=== PATIENT | female | born 1955 | race Native Hawaiian/Other Pacific Islander ===

== ENCOUNTER → 2016-10-16 | Outpatient (CLI) | payer OTHER ==
[2016-10-16 11:22] LABS: FREE T4 1.06 ng/dL (0.76-1.46); FREE THYROXINE INDEX 2.7 ug/dL (1.4-4.5)
[2016-10-16 12:16] LABS: T3 TOTAL 1.1 ng/mL
[2016-10-16 13:00] LABS: CHOLESTEROL/HDL RATIO 4.8
== END | disposition home or self-care (01) ==
LOC: LB 10:34
PROVIDERS: Family Medicine
DX: E78.5 Hyperlipidemia, unspecified (principal)
CPT/HCPCS: 84439

== ENCOUNTER 2017-01-07 07:15 | Emergency (ER) | payer OTHER ==
[~2017-01-07] VITALS: Ht 154.9 cm; Wt 63.7 kg
[2017-01-07 07:24] VITALS: BP 129/61
== END 2017-01-07 08:04 | disposition home or self-care (01) ==
LOC: ED 07:15
DX: J01.00 Acute maxillary sinusitis, unspecified (principal)

== ENCOUNTER → 2017-07-20 | Outpatient (CLI) | payer OTHER | END | disposition home or self-care (01) | LOC: MI 08:36 | PROC: BR30ZZZ Magnetic Resonance Imaging (MRI) of Cervical Spine (ICD-10-PCS; principal; 2017-07-20) | DX: M54.2 Cervicalgia (principal) | CPT/HCPCS: Q0092 ==

== ENCOUNTER → 2017-09-09 | Outpatient (CLI) | payer OTHER ==
[2017-09-09 09:03] LABS: ALBUMIN 3.9 g/dL (3.4-5.0); ALKALINE PHOSPHATASE 85 U/L (46-116); ALT/SGPT 43 U/L (14-59); AST/SGOT 19 U/L (15-37); BILIRUBIN TOTAL 0.41 mg/dL (0.20-1.00); CALCIUM 8.8 mg/dL (8.5-10.1); CARBON DIOXIDE 28.3 mmol/L (21-32); CHLORIDE SERUM 107 mmol/L (98-107); CREATININE SERUM 0.8 mg/dL (0.6-1.0); GFR1 > 60 mL/min; GLUCOSE SERUM 102 mg/dL (74-106); HDL CHOLESTEROL 48 mg/dL (40-60); POTASSIUM SERUM 4.3 mmol/L (3.5-5.1); SODIUM SERUM 143 mmol/L (136-145); TOTAL PROTEIN, SERUM 7.2 g/dL (6.4-8.2); TRIGLYCERIDES 140 mg/dL (<150)
[2017-09-09 09:04] LABS: CHOLESTEROL 218 mg/dL (<200); CHOLESTEROL/HDL RATIO 4.5
[2017-09-09 09:05] LABS: BASOPHIL % 1.2 % (0-2); PLATELET COUNT 256 x10^3mcL (130-400); RED CELL DISTRIBUTION WIDTH 13.8 % (11.5-14.5)
[2017-09-09 09:50] LABS: FREE T4 0.94 ng/dL (0.76-1.46); FREE THYROXINE INDEX 2.9 ug/dL (1.4-4.5); T4(THYROXINE) 8.2 ug/dL (4.7-13.3)
== END | disposition home or self-care (01) ==
LOC: MA 08:15
PROVIDERS: Family Medicine
PROC: BH02ZZZ Plain Radiography of Bilateral Breasts (ICD-10-PCS; principal; 2017-09-09)
DX: Z12.31 Encounter for screening mammogram for malignant neoplasm of breast (principal)
CPT/HCPCS: 77067; 84439

== ENCOUNTER 2017-10-21 06:28 | Day surgery (SDC) | payer OTHER ==
[~2017-10-21] VITALS: Ht 154.9 cm; Wt 63.5 kg
[2017-10-21 07:15] VITALS: BP 123/69
[2017-10-21 11:51] VITALS: BP 107/66
== END 2017-10-21 11:05 | disposition home or self-care (01) ==
LOC: DS 06:28 → OR 09:30 → DS 09:30
PROVIDERS: Anesthesiology Pain Medicine
PROC: 3E0R3BZ Introduction of Anesthetic Agent into Spinal Canal, Percutaneous Approach (ICD-10-PCS; 2017-10-21)
PROC: B01B1ZZ Fluoroscopy of Spinal Cord using Low Osmolar Contrast (ICD-10-PCS; 2017-10-21)
PROC: 3E0R33Z Introduction of Anti-inflammatory into Spinal Canal, Percutaneous Approach (ICD-10-PCS; principal; 2017-10-21 09:30)
DX: M50.13 Cervical disc disorder with radiculopathy, cervicothoracic region (principal); G89.4 Chronic pain syndrome; Z68.26 Body mass index [BMI] 26.0-26.9, adult; Z98.1 Arthrodesis status
CPT/HCPCS: 77003; J1100; J2250; J3010; J3490; J7040; Q9967

== ENCOUNTER → 2018-01-20 | Day surgery (SDC) | payer OTHER ==
[~2018-01-20] VITALS: Ht 154.9 cm; Wt 63.0 kg
[2018-01-20 07:02] VITALS: BP 101/54
[2018-01-20 10:26] VITALS: BP 110/71
== END | disposition home or self-care (01) ==
LOC: OR 11-18 07:30 → DS 11-18 07:30
PROVIDERS: Anesthesiology Pain Medicine
PROC: 3E0R3BZ Introduction of Anesthetic Agent into Spinal Canal, Percutaneous Approach (ICD-10-PCS; 2018-01-20)
PROC: B01B1ZZ Fluoroscopy of Spinal Cord using Low Osmolar Contrast (ICD-10-PCS; 2018-01-20)
PROC: 3E0R33Z Introduction of Anti-inflammatory into Spinal Canal, Percutaneous Approach (ICD-10-PCS; principal; 2018-01-20 08:00)
DX: M50.10 Cervical disc disorder with radiculopathy, unspecified cervical region (principal); M96.1 Postlaminectomy syndrome, not elsewhere classified; G89.4 Chronic pain syndrome; Z68.26 Body mass index [BMI] 26.0-26.9, adult
CPT/HCPCS: 77003; J1100; J2250; J3010; J3490; J7120; Q9967